=== PATIENT | female | born 1955 | race Caucasian/White ===

== ENCOUNTER 2017-09-22 15:54 | Emergency (ER) | payer MEDICARE ==
[2017-09-22 17:23] LABS: BASOPHILS % (AUTO) 0.3 % (0.0-5.0); EOSINOPHILS % (AUTO) 0.3 % (0.0-8.0); LYMPHOCYTES % (AUTO) 24.8 % (21.0-51.0); MEAN CORPUSCULAR HEMOGLOBIN 31.6 pg (27.0-33.0); MEAN CORPUSCULAR HGB CONC 35.1 g/dL (32.0-36.0); MEAN CORPUSCULAR VOLUME 90.2 fL (79-99); MONOCYTES % (AUTO) 7.9 % (3.0-13.0); NEUTROPHILS % (AUTO) 66.7 % (40.0-77.0); PLATELET COUNT (AUTO) 208 K/uL (130-400); RED BLOOD CELL COUNT(AUTO) 4.55 MIL/uL (4.00-5.50); RED CELL DISTRIBUTION WIDTH 13.1 % (11.0-15.5); WHITE BLOOD COUNT (AUTO) 7.7 K/uL (4.8-10.8)
[2017-09-22] MEDS ORDERED: SODIUM CHLORIDE 0.9% 1000ML 1,000 ML IV ONE (17:27)
[2017-09-22] MEDS ORDERED: KETOROLAC TROMETHAMINE 30MG/ML ONE (17:27)
[2017-09-22] MEDS ORDERED: TETANUS/DIPHTHERIA TOXOID [ADULT] 0.5 ML VIAL IM ONE (17:28)
[2017-09-22] MEDS ORDERED: INSULIN HUMULIN R 100 UNIT/ML 3ML ONE (17:29)
[2017-09-22 17:44] LABS: ALANINE AMINOTRANSFERASE 46 U/L (12-78); ALBUMIN 3.7 g/dL (3.5-5.0); ASPARTATE AMINOTRANSFERASE 27 U/L (10-37); BILIRUBIN,TOTAL 0.5 mg/dL (0.2-1.0); CARBON DIOXIDE 31 mmol/L (21-32); CHLORIDE 99 mmol/L (101-111); CREATININE 0.8 mg/dL (0.5-1.5); GLOMERULAR FILTR. RATE CALC 77 mL/min (>60); POTASSIUM 4.1 mmol/L (3.5-5.1); SODIUM SERUM 138 mmol/L (136-145); TOTAL PROTEIN, SERUM 7.3 g/dL (6.0-8.3); UREA NITROGEN, BLOOD 12 mg/dL (7-18)
[2017-09-22 17:48] LABS: GLUCOSE,RANDOM 412 mg/dL (70-105)
[2017-09-22 17:49] LABS: CRP QUANTITATIVE < 2.00 mg/L (0.00-9.0)
[2017-09-22] MEDS ORDERED: SULFAMETHOX-TMP DS 800/160 TAB ONE (18:28)
[2017-09-22] MEDS ORDERED: CEFTRIAXONE SODIUM 1 GM ONE (18:29)
[2017-09-22 18:42] LABS: ERYTHROCYTE SEDIMENTATION RATE 22 MM/HR (0-15)
== END 2017-09-22 19:36 | disposition home or self-care (01) ==
LOC: EDH 15:54
DX: L03.032 Cellulitis of left toe (principal); E11.65 Type 2 diabetes mellitus with hyperglycemia; E78.5 Hyperlipidemia, unspecified; Z88.8 Allergy status to other drugs, medicaments and biological substances; Z98.890 Other specified postprocedural states
CPT/HCPCS: 36415; 73660; 80053; 82009; 82948 ×2; 85025; 85651; 86141; 87040 ×2; 90471; 90714; 96361; 96374 ×2; 96375; 99285; J0696; J1815; J1885; J7030